=== PATIENT | male | born 1930 | race Caucasian/White ===

== ENCOUNTER → 2016-10-20 | Outpatient (CLI) | payer MEDICARE, OTHER ==
[2016-10-20 10:52] LABS: CREATININE 1.2 mg/dL (0.6-1.3)
== END | disposition disaster alternative care site (69) ==
LOC: GRAD 09:55 → GLAB 10:00
PROVIDERS: Registered Nurse Medical-Surgical
DX: C85.11 Unspecified B-cell lymphoma, lymph nodes of head, face, and neck (principal); M47.812 Spondylosis without myelopathy or radiculopathy, cervical region; R59.1 Generalized enlarged lymph nodes
CPT/HCPCS: Q9967